=== PATIENT | female | born 1970 | race Caucasian/White ===

== ENCOUNTER 2025-02-25 11:57 | Emergency (ER) | payer OTHER ==
[2025-02-25] MEDS ORDERED: KETOROLAC 30 MG/ML INJ ONE (12:24)
--- NOTE | 2025-02-25 13:13 | RAD REPORT ---
EXAMINATION: XR RIGHT HIP CLINICAL INDICATION: . PAIN RIGHT TECHNIQUE: Multiple views of the right hip were obtained. COMPARISON: No prior exam. FINDINGS: No evidence of fracture or dislocation. Normal alignment. No radiographic evidence of AVN. IMPRESSION: No significant bone or joint abnormalities.
--- NOTE | 2025-02-25 13:18 | RAD REPORT ---
EXAMINATION: XR LEFT KNEE CLINICAL INDICATION: PAIN TECHNIQUE: Multiple projections of the left knee were obtained. COMPARISON: No prior exam. FINDINGS: Mild soft tissue swelling seen anteriorly. Lucency seen in the region of the patella noted. If the patient is clinically point tender over the patella, fracture may be considered. Otherwise no bone or joint abnormality is seen.
--- NOTE | 2025-02-25 14:01 | ER ---
Nurse's Notes [facility] Name: Tiffany Castañeda Age: 54 yrs Sex: Female : 1970 Arrival Date: 02/25/2025 Time: 11:57 Bed 14 Private MD: Diagnosis: Pain in left knee;Pain in right hip Presentation: 02/25 12:17 Ebola Screen: Patient denies travel to an Ebola-affected area in the 21 days before ll1 illness onset. Initial Sepsis Screen: Does the patient meet any 2 criteria? No. Patient's initial sepsis screen is negative. Does the patient have a suspected source of infection? No. Patient's initial sepsis screen is negative. Risk Assessment: Do you want to hurt yourself or someone else? Patient reports no desire to harm self or others. 12:17 Method Of Arrival: Ambulatory ll1 12:18 Chief complaint: Patient states: L knee pain, swelling for days. R hip pain also. ll1 Coronavirus screen: Client denies travel out of the [place] in the last 14 days. At this time, the client does not indicate any symptoms associated with coronavirus-19. 12:21 Onset of symptoms was February 11, 2025. ll1 12:21 Acuity: JACQUI 3 ll1 Triage Assessment: 12:18 General: Appears uncomfortable, Behavior is calm, cooperative, appropriate for age. ll1 Pain: Complains of pain in L knee Quality of pain is described as aching. Musculoskeletal: Reports pain in L knee. Historical: - Allergies: 12:17 PENICILLINS; ll1 - PMHx: 12:17 Hypothyroidism; COPD; ll1 12:20 rheutism; ll1 - PSHx: 12:20 hysterectomy; shoulder surgery; ll1 - Immunization history:: Adult Immunizations up to date. - Infectious Disease History:: Denies. - Social history:: Smoking status: Patient/guardian denies using tobacco, the patient reports quitting approximately 5 years ago. Screenin:43 [facility] ED Fall Risk Assessment (Adult) History of falling in the last 3 months, db including since admission No falls in past 3 months (0 pts) Confusion or Disorientation No (0 pts) Intoxicated or Sedated No (0 pts) Impaired Gait No (0 pts) Mobility Assist Device Used No (0 pt) Altered Elimination No (0 pt) Score/Fall Risk Level 0 - 2 = Low Risk Oriented to surroundings, Maintained a safe environment. Abuse screen: Denies threats or abuse. Denies injuries from another. Nutritional screening: No deficits noted. Tuberculosis screening: No symptoms or risk factors identified. Assessment: 12:37 Reassessment: Patient appears in no apparent distress at this time. Patient and/or db family updated on plan of care and expected duration. Pain level reassessed. Patient is alert, oriented x 3, equal unlabored respirations, skin warm/dry/pink. General: Appears in no apparent distress. comfortable, Behavior is calm, cooperative. Pain: Complains of pain in right hip and left knee. Neuro: Level of Consciousness is awake, alert, obeys commands, Oriented to person, place, time, situation. Cardiovascular: No deficits noted. Respiratory: Airway is patent Respiratory effort is even, unlabored, Respiratory pattern is regular, symmetrical. GI: No deficits noted. No signs and/or symptoms were reported involving the gastrointestinal system. 14:42 Reassessment: Patient appears in no apparent distress at this time. Patient and/or db family updated on plan of care and expected duration. Pain level reassessed. Patient is alert, oriented x 3, equal unlabored respirations, skin warm/dry/pink. Patient states feeling better. Vital Signs: 12:21 Resp 17; Weight 63.5 kg; Height 5 ft. 3 in. ; Pain 8/10; ll1 12:26 BP 125 / 79; Pulse 73; Resp 16; Temp 97.1; Pulse Ox 100% ; db 14:42 BP 125 / 78; Pulse 75; Resp 16; Pulse Ox 100% ; db 12:21 Body Mass Index 24.80 (63.50 kg, 160.02 cm) ll1 12:21 Pain Scale: Adult ll1 ED Course: 12:00 Patient arrived in ED. mr 12:11 Bib Us DO is Attending Physician. ms3 12:16 Arm band placed on Patient placed in an exam room, on a stretcher. ss 12:21 Triage completed. ll1 13:01 Knee Left 3 View XRAY In Process Unspecified. EDMS 13:01 Hip Right 2 View XRAY In Process Unspecified. EDMS 13:36 Marilee Mauro, RN is Primary Nurse. ph 13:37 Patient has correct armband on for positive identification. Bed in low position. Call ph light in reach. Side rails up X 1. Door closed. Noise minimized. 13:37 No provider procedures requiring assistance completed. Patient did not have IV access ph during this emergency room visit. 13:59 Cash Self MD is Referral Physician. ms3 14:00 Greg Lora DO is Referral Physician. ms3 14:42 Provided Education on: crutches. db 14:42 Crutch training done. Knee immobilizer applied on left knee. db Administered Medications: 12:28 Drug: Ketorolac IM 15 mg IM once Route: IM; Site: right deltoid; db 14:43 Follow up: Response: No adverse reaction; Pain is decreased db Medication: 12:37 VIS not applicable for this client. db Outcome: 14:00 Discharge ordered by . ms3 14:42 Discharged to home ambulatory, db 14:42 Condition: stable 14:42 Discharge instructions given to patient, Instructed on discharge instructions, follow up and referral plans. Prescriptions given X 2, 14:43 Patient left the ED. db Signatures: Dispatcher [employer] EDMS Amanda Gauthier, Reg Reg mr Veronika Wyatt, RN RN Marilee Mauro RN RN Leydi Maynard RN RN ll1 Bib Us DO DO ms3 Chelly Isaacs, RN RN db Corrections: (The following items were deleted from the chart) 12:19 12:18 Chief complaint: Patient states: L knee/hip pain for days. ll1 ll1
--- NOTE | 2025-02-25 14:01 | EDPHYS ---
Physician Documentation [facility] Name: Tiffany Castañeda Age: 54 yrs Sex: Female : 1970 Arrival Date: 02/25/2025 Time: 11:57 Bed 14 Private MD: ED Physician Bib Us HPI: 02/25 13:17 This 54 yrs old Female presents to ER via Ambulatory with complaints of Knee Pain, Hip ms3 Pain. 13:17 54-year-old female with past medical history of hypothyroidism, COPD, rheumatism ms3 presents to the emergency department for 2 weeks of left knee swelling and pain and right hip pain. Patient states she was seen in urgent care after 1 week and x-ray was performed and she was told she had arthritis in her hip and knee. Patient was given Toradol and steroid injections and symptoms improved for 2 days. Patient states today her left knee appears to be more swollen. Historical: - Allergies: 12:17 PENICILLINS; ll1 - PMHx: 12:17 Hypothyroidism; COPD; ll1 12:20 rheutism; ll1 - PSHx: 12:20 hysterectomy; shoulder surgery; ll1 - Immunization history:: Adult Immunizations up to date. - Infectious Disease History:: Denies. - Social history:: Smoking status: Patient/guardian denies using tobacco, the patient reports quitting approximately 5 years ago. ROS: 13:17 Constitutional: Negative for fever, and chills. Cardiovascular: Negative for chest ms3 pain, and palpitations. Respiratory: Negative for shortness of breath, cough, wheezing, and pleuritic chest pain, Abdomen/GI: Negative for abdominal pain, nausea, vomiting, diarrhea, and constipation, 13:17 MS/extremity: Positive for Left knee and right hip pain, Exam: 13:17 Constitutional: This is a well developed, well nourished patient who is awake, alert, ms3 and in no acute distress. Chest/axilla: Normal chest wall appearance and motion. Nontender with no deformity. Cardiovascular: Regular rate and rhythm with a normal S1 and S2. No gallops, murmurs, or rubs. Normal PMI, no JVD. No pulse deficits. Respiratory: Lungs have equal breath sounds bilaterally, clear to auscultation and percussion. No rales, rhonchi or wheezes noted. No increased work of breathing, no retractions or nasal flaring. Abdomen/GI: Soft, non-tender, with normal bowel sounds. No distension or tympany. No guarding or rebound. No evidence of tenderness throughout. 13:17 Musculoskeletal/extremity: Extremities: noted in the left knee: pain, swelling, Vital Signs: 12:21 Resp 17; Weight 63.5 kg; Height 5 ft. 3 in. ; Pain 8/10; ll1 12:26 BP 125 / 79; Pulse 73; Resp 16; Temp 97.1; Pulse Ox 100% ; db 14:42 BP 125 / 78; Pulse 75; Resp 16; Pulse Ox 100% ; db 12:21 Body Mass Index 24.80 (63.50 kg, 160.02 cm) ll1 12:21 Pain Scale: Adult ll1 MDM: 12:14 Medical Screening Exam initiated ms3 13:17 Differential diagnosis: bursitis, arthritis, strain. ms3 13:59 ED course: DSP ENGINEER reviewed prior to T#3 Rx. ms3 14:01 Data reviewed: vital signs, nurses notes, radiologic studies, and as a result, I will ms3 discharge patient. I considered the following discharge prescriptions or medication management in the emergency department Medications were administered in the Emergency Department. See MAR. Independent interpretation of the following test(s) in the Emergency Department X-Ray: My interpretation is Left knee x-ray images reviewed by me do not reveal effusion or fracture. Counseling: I had a detailed discussion with the patient and/or guardian regarding the historical points, exam findings, and any diagnostic results supporting the discharge/admit diagnosis, radiology results, the need for outpatient follow up, to return to the emergency department if symptoms worsen or persist or if there are any questions or concerns that arise at home. Special discussion: I discussed with the patient/guardian in detail that at this point there is no indication for admission to the hospital. It is understood, however, that if the symptoms persist or worsen the patient needs to return immediately for re-evaluation. ED course: Discussed x-ray results with patient. Patient to follow-up with Dr. Self and Dr. Lora in 2 to 3 days. Patient understands agrees with plan. All questions were answered. Return precautions discussed include worsening symptoms, or any other concerns. Discussed arthrocentesis with patient and she declines at this time.. 02/25 12:21 Order name: Knee Left 3 View XRAY; Complete Time: 13:38 ms3 02/25 12:21 Order name: Hip Right 2 View XRAY; Complete Time: 13:17 ms3 02/25 13:56 Order name: Crutches; Complete Time: 14:42 ms3 02/25 13:56 Order name: Knee Immobilizer; Complete Time: 14:42 ms3 Administered Medications: 12:28 Drug: Ketorolac IM 15 mg IM once Route: IM; Site: right deltoid; db 14:43 Follow up: Response: No adverse reaction; Pain is decreased db Disposition Summary: 02/25/25 14:00 Discharge Ordered Notes: Location: Home ms3 Condition: Stable ms3 Diagnosis - Pain in left knee ms3 - Pain in right hip ms3 Followup: ms3 - With: Cash Self MD - When: 2 - 3 days - Reason: Recheck today's complaints Followup: ms3 - With: rGeg Lora DO - When: 2 - 3 days - Reason: Recheck today's complaints Discharge Instructions: - Discharge Summary Sheet ms3 - Acute Knee Pain, Adult ms3 - Hip Pain ms3 Forms: - Medication Reconciliation Form ms3 - Antibiotic Education ms3 - Prescription Opioid Use ms3 - Patient Portal Instructions ms3 - Leadership Thank You Letter ms3 Prescriptions: - Medrol (Phil) 4 mg Oral Tablets, Dose Pack - take 1 tablet ORAL route as directed - follow package instructions; 1 packet; ms3 Refills: 0, Product Selection Permitted - Tylenol-Codeine #3 300mg-30mg Oral tablet - take 1 tablet ORAL route every 4 hours As needed; 16 tablet; Refills: 0, ms3 Product Selection Permitted Signatures: Dispatcher [employer] EDMS Leydi Maynard, RN RN ll1 Bib Us, DO DO ms3 Chelly Isaacs RN RN db Corrections: (The following items were deleted from the chart) 12: 12:22 Knee Left 3 View+RAD.RAD.BRZ ordered. EDMS EDMS 12:22 12:22 Hip Right 2 View+RAD.RAD.BRZ ordered. EDMS EDMS
[2025-02-25 15:36] VITALS: TEMP 97.1; O2SAT 100
[2025-02-25 15:39] VITALS: BP 125/78
== END 2025-02-25 14:43 | disposition home or self-care (01) ==
LOC: ER 11:57
DX: M25.562 Pain in left knee (principal); M25.551 Pain in right hip
CPT/HCPCS: 96372; 99284